=== PATIENT | male | born 1975 | race Caucasian/White ===

== ENCOUNTER 2017-12-21 16:34 | Emergency (ER) | payer MEDICARE ==
[2017-12-21] MEDS ORDERED: HYDROCODONE/ACETAMINOPHEN 5-325 MG TABLET PO ONE (17:49)
--- NOTE | 2017-12-21 17:51 | ER Document Report ---
HPI - HPI Patient complains to provider of: Fall Onset: This afternoon Onset/Duration: Sudden Quality of pain: Achy Pain Level: 5 Context: Patient states that he was helping to clean yard debris and lost his balance twisting his left knee and injuring his left forearm and wrist. Patient denies any head injury chest pain or back pain. Associated Symptoms: Other - Left wrist, forearm, left knee pain Exacerbated by: Standing, Movement, Walking Relieved by: Denies Similar symptoms previously: No Recently seen / treated by doctor: No - ROS ROS below otherwise negative: Yes Systems Reviewed and Negative: Yes All other systems reviewed and negative - NEURO Neurology: DENIES: Headache, Weakness - GASTROINTESTINAL Gastrointestinal: DENIES: Nausea - MUSCULOSKELETAL Musculoskeletal: REPORTS: Extremity pain - DERM Skin Color: Normal Skin Problems: None Past Medical History - General Information source: Patient - Social History Smoking Status: Never Smoker Frequency of alcohol use: None Drug Abuse: None Occupation: None Lives with: Family Family History: Reviewed & Not Pertinent Psychiatric Medical History: Reports: Other - Delusional disorder Past Surgical History: Reports: Hx Adenoidectomy, Hx Herniorrhaphy, Hx Tonsillectomy Vertical Provider Document - CONSTITUTIONAL Agree With Documented VS: Yes Exam Limitations: No Limitations General Appearance: WD/WN, No Apparent Distress - INFECTION CONTROL TRAVEL OUTSIDE OF THE [place] IN LAST 30 DAYS: No - HEENT HEENT: Atraumatic, Normocephalic - NECK Neck: Normal Inspection, Supple - RESPIRATORY Respiratory: Breath Sounds Normal, No Respiratory Distress - CARDIOVASCULAR Cardiovascular: Regular Rate, Regular Rhythm Pulses: Normal: Radial, Posterior tibial - MUSCULOSKELETAL/EXTREMETIES Musculoskeletal/Extremeties: MAEW, FROM, Tender - Left forearm tenderness to the middle and distal third, left wrist tenderness to dorsal aspect. Left wrist redness increases with flexion and extension. Left knee joint tenderness to the lateral compartment, no effusion. No laxity with varus or valgus maneuvers. Left knee pain increases with any range of motion., No Edema. negative: Eccymosis - NEURO Level of Consciousness: Awake, Alert, Appropriate Motor/Sensory: No Motor Deficit - DERM Integumentary: Warm, Dry, No Rash Course - Vital Signs Vital signs: Temp Pulse Resp BP Pulse Ox 99.2 F 106 H 18 139/76 H 97 12/21/17 17:05 12/21/17 17:05 12/21/17 17:05 12/21/17 17:05 12/21/17 17:05 - Diagnostic Test Radiology reviewed: Reports reviewed Procedures - Immobilization Left Wrist Pre-Proc Neuro Vasc Exam: Normal Immobilizer type: Cock-up Performed by: RN Post-Proc Neuro Vasc Exam: Normal Alignment checked and good: Yes Left Knee Pre-Proc Neuro Vasc Exam: Normal Immobilizer type: Knee immobilizer Performed by: RN Post-Proc Neuro Vasc Exam: Normal Alignment checked and good: Yes Discharge - Discharge Clinical Impression: Fall Qualifiers: Encounter type: initial encounter Qualified Code(s): W19.XXXA - Unspecified fall, initial encounter Left wrist sprain Qualifiers: Encounter type: initial encounter Qualified Code(s): S63.502A - Unspecified sprain of left wrist, initial encounter Left knee sprain Qualifiers: Encounter type: initial encounter Involved ligament of knee: unspecified ligament Qualified Code(s): S83.92XA - Sprain of unspecified site of left knee, initial encounter Condition: Stable Disposition: HOME, SELF-CARE Instructions: Acetaminophen, Ice & Elevation ([facility]), Knee Immobilizing Splint ( [facility]), Sprained Knee ([facility]), Wrist Sprain ([facility]), Temporary Splint ([facility]) Additional Instructions: Return immediately for any new or worsening symptoms Followup with your primary care provider, call tomorrow to make a followup appointment Follow-up with orthopedics for further evaluation, call Sunday for an appointment Prescriptions: Naproxen [Naprosyn 250 Nmg Tablet] 1 tab PO BID #14 tablet Referrals: GREGORY LLOYD MD [Primary Care Provider] - Follow up as needed [facility] [Provider Group] - Follow up as needed
--- NOTE | 2017-12-21 18:17 | RADIOLOGY REPORT (SQ) ---
EXAM DESCRIPTION: FOREARM LEFT COMPLETED DATE/TIME: 12/21/2017 6:08 pm REASON FOR STUDY: fall COMPARISON: None. NUMBER OF VIEWS: Two views. TECHNIQUE: Two radiographic images acquired of the left forearm, including elbow and wrist in at april [address] one projection. LIMITATIONS: None. FINDINGS: MINERALIZATION: Normal. BONES: No acute fracture. No worrisome bone lesions. SOFT TISSUES: No obvious swelling or foreign body. OTHER: No other significant finding. IMPRESSION: NEGATIVE STUDY OF THE LEFT FOREARM. NO RADIOGRAPHIC EVIDENCE OF ACUTE INJURY. TECHNICAL DOCUMENTATION: JOB ID: [id number] [employer]- All Rights Reserved Reading location - IP/workstation name: [email or web address]
--- NOTE | 2017-12-21 18:18 | RADIOLOGY REPORT (SQ) ---
EXAM DESCRIPTION: WRIST LEFT 3 VIEWS COMPLETED DATE/TIME: 12/21/2017 6:08 pm REASON FOR STUDY: fall COMPARISON: None. NUMBER OF VIEWS: Three views. TECHNIQUE: AP, lateral, and oblique radiographic images acquired of the left wrist. LIMITATIONS: None. FINDINGS: MINERALIZATION: Normal. BONES: No acute fracture or dislocation. No worrisome bone lesions. Normal alignment. SOFT TISSUES: No soft tissue swelling. No foreign body. OTHER: No other significant finding. IMPRESSION: NEGATIVE STUDY OF THE LEFT WRIST. NO RADIOGRAPHIC EVIDENCE OF ACUTE INJURY. TECHNICAL DOCUMENTATION: JOB ID: [id number] [employer]- All Rights Reserved Reading location - IP/workstation name: [email or web address]
--- NOTE | 2017-12-21 18:20 | RADIOLOGY REPORT (SQ) ---
EXAM DESCRIPTION: KNEE LEFT 4 VIEW COMPLETED DATE/TIME: 12/21/2017 6:08 pm REASON FOR STUDY: fall COMPARISON: None. NUMBER OF VIEWS: Four views. TECHNIQUE: AP, lateral, and both oblique radiographic images acquired of the left knee. LIMITATIONS: None. FINDINGS: MINERALIZATION: Normal. BONES: No acute fracture or dislocation. No worrisome bone lesions. JOINT: A moderate joint effusion is present. SOFT TISSUES: No soft tissue swelling. No radio-opaque foreign body. OTHER: No other significant finding. IMPRESSION: Moderate joint effusion without underlying fracture or dislocation. TECHNICAL DOCUMENTATION: JOB ID: [id number] [employer]- All Rights Reserved Reading location - IP/workstation name: [email or web address]
[2017-12-21 19:12] VITALS: BP 139/73
== END 2017-12-21 19:37 | disposition home or self-care (01) ==
LOC: ER 16:34
DX: S63.502A Unspecified sprain of left wrist, initial encounter (principal); S83.92XA Sprain of unspecified site of left knee, initial encounter; X50.0XXA Overexertion from strenuous movement or load, initial encounter; Y93.H2 Activity, gardening and landscaping; Y92.007 Garden or yard of unspecified non-institutional (private) residence as the place of occurrence of the external cause
CPT/HCPCS: 99283; 73090; 73564; 73110; L1830; L3908; A9270